=== PATIENT | female | born 1960 | race Caucasian/White ===

== ENCOUNTER → 2021-05-06 | Outpatient (CLI) | payer OTHER ==
--- NOTE | 2021-05-06 12:41 | Diagnostic Imaging Report ---
INDICATION: Back pain COMPARISON: None. FINDINGS: 3 views lumbar column demonstrate normal alignment. There is no subluxation or fracture. Mild degenerative disc disease and facet arthropathy is seen throughout. There is no osseous lesion. IMPRESSION: Mild diffuse changes without fracture. Dictated by: Dictated on workstation # [id number]
--- NOTE | 2021-05-06 16:37 | Diagnostic Imaging Report ---
INDICATION: Pain COMPARISON: None available. TECHNIQUE: 2 radiographs of the left knee dated 05/06/2021. FINDINGS: No acute fracture or dislocation. No destructive osseous process. Minimal medial joint space narrowing. The lateral compartment is well maintained. Minimal osteophytosis. No significant knee joint effusion. No suspicious radiopaque foreign body. IMPRESSION: No acute osseous abnormality with minimal degenerative changes for age. Dictated by: Dictated on workstation # [id number]
== END ==
LOC: RAD 10:07
PROVIDERS: ATTEND Family Medicine
DX: Z02.71 Encounter for disability determination (principal); M54.50 Low back pain, unspecified; M25.562 Pain in left knee
CPT/HCPCS: 72100; 73560